=== PATIENT | male | born 1970 | race African-American/Black ===

== ENCOUNTER 2020-04-27 19:44 | Emergency (ER) | payer BC ==
[~2020-04-27] VITALS: Ht 193 cm; Wt 86.4 kg
[2020-04-27] MEDS ORDERED: LOSA50TA37 PO (20:22)
[2020-04-27] MEDS ORDERED: HYDROCODONE/ACETAMINOPHEN 5-325 MG TABLET PO ONE (20:30)
[2020-04-27] MEDS ORDERED: AmLODIPine BESYLATE 5 MG TABLET PO ONE (20:30)
[2020-04-27 21:03] VITALS: BP 181/115
== END 2020-04-27 21:07 | disposition home or self-care (01) ==
LOC: EMS 19:47
DX: M25.562 Pain in left knee (principal); I10 Essential (primary) hypertension; F17.210 Nicotine dependence, cigarettes, uncomplicated
CPT/HCPCS: 99281; Z7502; Z7610